=== PATIENT | male | born 1985 | race Caucasian/White ===

== ENCOUNTER 2017-07-21 16:12 | Inpatient (IN) ==
--- NOTE | 2017-07-21 16:32 | Emergency Department Note ---
Disposition Clinical Impression: Hallucinations Disposition: Admitted As Inpatient Condition: Good General Adult HPI - General Chief complaint: ED Psychiatric Symptoms Stated complaint: hallucinations Time Seen by Provider: 07/21/17 16:19 Source: patient, EMS Limitations: no limitations Nursing Notes Reviewed: Yes Vital Signs Reviewed: Yes - History of Present Illness HPI Narrative: 31-year-old male who reports 6 months of visual hallucinations. He states that they are worse after using methamphetamine. He denies any other medical problems aside from bipolar but is not currently treated for that. He states that the hallucinations that he sees are children being killed. Denies auditory hallucinations. Denies other drug or alcohol use. No difficulty walking. Denies SI/HI. He saw his counselor who recommended that he come to the emergency room for evaluation from . Last meth use was 3-4 days ago. Radiation: non-radiation Pain Severity: moderate Pain Scale: 5 Improves with: nothing Worsens with: other (meth use) Associated symptoms: Reports: denies other symptoms Treatments Prior to Arrival: none - Related Data Home Medications Medication Instructions Recorded Confirmed No Known Home Drugs 07/21/17 07/21/17 Allergies Allergy/AdvReac Type Severity Reaction Status Date / Time Sulfa (Sulfonamide AdvReac Rash Verified 05/19/17 12:40 Antibiotics) All systems ED: reviewed and negative except as stated. Constitutional: Denies: fever ENT ED: Denies: throat pain Cardiovascular: Denies: chest pain Respiratory: Denies: cough Gastrointestinal: Denies: abdominal pain Musculoskeletal: Denies: back pain Integumentary: Denies: rash Neurological: Denies: headache Past Medical History - Past Medical History Medical history: Reports: hepatitis Psychiatric history: Reports: bipolar, depression, previous psychiatric hospitalization - Social History Smoking Status: Current every day smoker Smokeless Tobacco Status: No Alcohol use: Reports: rarely Drug use: Reports: opiates, methamphetamine, IV Drug Use Physical Exam - General Limitations: no limitations General appearance: alert, in no apparent distress - Head Head exam: atraumatic - Eye Eye exam: Present: normal appearance, PERRL - ENT ENT exam: normal exam - Neck Neck exam: Present: normal inspection - Chest Chest inspection: Present: normal inspection - Respiratory Respiratory exam: Present: normal lung sounds bilaterally. Absent: respiratory distress - Cardiovascular Cardiovascular exam: Present: regular rate, normal rhythm - Abdominal Exam Abdominal exam: Present: soft, Non-Tender - Extremities Exam Extremities exam: Present: normal inspection - Back Exam Back exam: Present: normal inspection - Neurological Exam Neurological exam: Present: alert, oriented X3 - Skin Skin exam: Present: warm, dry Course Course Narrative: This patient will be dispositioned by Dr Hagen. He has been signed out to Dr Hagen by myself. Vital Signs Temperature 99.5 F 07/21/17 16:18 Pulse Rate 99 07/21/17 16:18 Respiratory Rate 16 07/21/17 16:18 Blood Pressure 120/75 07/21/17 16:18 O2 Sat by Pulse Oximetry 99 07/21/17 16:18 Temperature 98.6 F 07/25/17 20:25 Pulse Rate 78 07/25/17 20:25 Respiratory Rate 16 07/25/17 20:25 Blood Pressure 116/70 07/25/17 20:25 O2 Sat by Pulse Oximetry 99 07/21/17 16:18 Oxygen Delivery Oxygen Delivery Room Air Medical Decision Making - Medical Records Medical records reviewed: Yes I reviewed the patient's medical records. - Lab Data Lab results reviewed: Yes I reviewed the patient's lab results. Result diagrams: 07/21/17 16:37 07/21/17 16:37 Lab Results 07/21/17 07/21/17 07/21/17 Range/Units 16:37 16:37 16:44 WBC 17.0 H (4.3-11.1) K/mcL RBC 5.24 (4.19-5.50) M/mcL Hgb 16.4 (12.9-16.9) g/dL Hct 47.8 (37.5-50.1) % MCV 91.2 (83.0-100.0) fL MCH 31.3 (28.0-33.3) pg MCHC 34.3 (31.6-35.5) g/dL RDW 12.7 (11.5-14.5) % Plt Count 243 (140-400) K/mcL MPV 10.7 (9.4-12.4) fL Immature Gran % 0.3 (0-4) % Seg Neutrophils % 66.5 % Lymphocytes % 17.3 % Monocytes % 15.2 % Eosinophils % 0.5 % Basophils % 0.2 % Neutrophils # 11.3 H (1.6-8.9) K/mcL Lymphocytes # 2.9 (0.6-4.6) K/mcL Monocytes # 2.6 H (0.0-1.3) K/mcL Eosinophils # 0.1 (0.0-0.6) K/mcL Basophils # 0.0 (0.0-0.2) K/mcL Sodium 137 (136-145) mEq/L Potassium 3.6 (3.5-5.1) mEq/L Chloride 100 (98-107) mEq/L Carbon Dioxide 27 (23-29) mEq/L BUN 9 (6-20) mg/dL Creatinine 0.76 (0.70-1.30) mg/dL Est GFR ( Amer) > 60 (> 60) Est GFR (Non-Af Amer) > 60 (> 60) BUN/Creatinine Ratio 12 (6-26) Glucose 81 (70-105) mg/dL Calculated Osmolality 282 (280-300) Calcium 9.7 (8.6-10.3) mg/dL Urine Color Dark Yellow (Yellow) Urine Clarity Cloudy A (Clear) Urine pH 6.0 (5.0-8.0) pH Units Ur Specific [place] 1.022 (1.010-1.025) Urine Protein Trace (Neg-Trace) mg/dL Urine Glucose (UA) Normal (Normal) mg/dL Urine Ketones Negative (Negative) mg/dL Urine Blood Negative (Negative) Urine Nitrite Negative (Negative) Urine Bilirubin Small H (Negative) Urine Urobilinogen Normal (Normal) mg/dL Ur Leukocyte Esterase Negative (Negative) Urine Microscopic RBC 0-3 (0-3) per hpf Urine Microscopic WBC 3-5 H (0-3) per hpf Ur Squamous Epith Cells Few (None-Few) per lpf Urine Bacteria Few (None-Few) per hpf Hyaline Casts None Seen (None-Few) per lpf Salicylates < 5.0 L (15.0-30.0) mg/dL Urine Opiates Screen (Kwywyg=860) ng/mL Acetaminophen < 1.0 L (10-30) mcg/mL Ur Barbiturates Screen (Nrccrg=458) ng/mL Ur Phencyclidine Scrn (Cutoff=25) ng/mL Ur Amphetamines Screen (Zawjrh=8020) ng/mL U Benzodiazepines Scrn (Bgczqo=517) ng/mL Urine Cocaine Screen (Cutoff= 300) ng/mL U Marijuana (THC) Screen (Cutoff = 50) ng/mL Ethyl Alcohol < 10 (0-10) mg/dL 07/21/17 Range/Units 16:44 WBC (4.3-11.1) K/mcL RBC (4.19-5.50) M/mcL Hgb (12.9-16.9) g/dL Hct (37.5-50.1) % MCV (83.0-100.0) fL MCH (28.0-33.3) pg MCHC (31.6-35.5) g/dL RDW (11.5-14.5) % Plt Count (140-400) K/mcL MPV (9.4-12.4) fL Immature Gran % (0-4) % Seg Neutrophils % % Lymphocytes % % Monocytes % % Eosinophils % % Basophils % % Neutrophils # (1.6-8.9) K/mcL Lymphocytes # (0.6-4.6) K/mcL Monocytes # (0.0-1.3) K/mcL Eosinophils # (0.0-0.6) K/mcL Basophils # (0.0-0.2) K/mcL Sodium (136-145) mEq/L Potassium (3.5-5.1) mEq/L Chloride (98-107) mEq/L Carbon Dioxide (23-29) mEq/L BUN (6-20) mg/dL Creatinine (0.70-1.30) mg/dL Est GFR ( Amer) (> 60) Est GFR (Non-Af Amer) (> 60) BUN/Creatinine Ratio (6-26) Glucose (70-105) mg/dL Calculated Osmolality (280-300) Calcium (8.6-10.3) mg/dL Urine Color (Yellow) Urine Clarity (Clear) Urine pH (5.0-8.0) pH Units Ur Specific [place] (1.010-1.025) Urine Protein (Neg-Trace) mg/dL Urine Glucose (UA) (Normal) mg/dL Urine Ketones (Negative) mg/dL Urine Blood (Negative) Urine Nitrite (Negative) Urine Bilirubin (Negative) Urine Urobilinogen (Normal) mg/dL Ur Leukocyte Esterase (Negative) Urine Microscopic RBC (0-3) per hpf Urine Microscopic WBC (0-3) per hpf Ur Squamous Epith Cells (None-Few) per lpf Urine Bacteria (None-Few) per hpf Hyaline Casts (None-Few) per lpf Salicylates (15.0-30.0) mg/dL Urine Opiates Screen Negative (Beogbo=004) ng/mL Acetaminophen (10-30) mcg/mL Ur Barbiturates Screen Negative (Vhoyaa=327) ng/mL Ur Phencyclidine Scrn Negative (Cutoff=25) ng/mL Ur Amphetamines Screen Positive H (Qnssgu=7739) ng/mL U Benzodiazepines Scrn Negative (Pjwygy=489) ng/mL Urine Cocaine Screen Negative (Cutoff= 300) ng/mL U Marijuana (THC) Screen Positive H (Cutoff = 50) ng/mL Ethyl Alcohol (0-10) mg/dL Attestation Statement - Attestation Attestation: I examined this patient and my medical decision-making was reviewed with the Resident Physician. I agree with the documented findings, disposition and treatment plan as described except.
[2017-07-21 16:51] LABS: Bilirubin,Urine Small (Negative); Blood,Urine Negative (Negative); Clarity,Urine Cloudy (Clear); Color,Urine Dark Yellow (Yellow); Glucose,Urine (UA) Normal (Normal); Ketones,Urine Negative (Negative); Leukocyte Esterase,Urine Negative (Negative); Nitrite,Urine Negative (Negative); Protein,Urine Trace mg/dL (Neg-Trace); Specific Gravity,Urine 1.022 (1.010-1.025); Urobilinogen,Urine Normal (Normal)
[2017-07-21 16:54] LABS: Hyaline Casts,Urine None Seen per lpf (None-Few); RBC,Urine 0-3 per hpf (0-3); Squamous Epithelial Cell,Urine Few per lpf (None-Few)
[2017-07-21 16:57] LABS: Amphetamine Screen,Urine Positive ng/mL (Cutoff=1000); Barbiturate Screen,Urine Negative ng/mL (Cutoff=200); Benzodiazepines Screen,Urine Negative ng/mL (Cutoff=200); Cannabinoid Screen,Urine Positive ng/mL (Cutoff = 50); Cocaine Screen,Urine Negative ng/mL (Cutoff= 300); Opiate Screen,Urine Negative ng/mL (Cutoff=300); Phencyclidine Screen,Urine Negative ng/mL (Cutoff=25)
[2017-07-21 16:59] LABS: Basophils % 0.2 %; Eosinophils # 0.1 K/mcL (0.0-0.6); Eosinophils % 0.5 %; Hematocrit 47.8 % (37.5-50.1); Hemoglobin 16.4 g/dL (12.9-16.9); Immature Granulocytes % 0.3 % (0-4); Lymphocytes # 2.9 K/mcL (0.6-4.6); Lymphocytes % 17.3 %; Mean Corpuscular HGB Conc 34.3 g/dL (31.6-35.5); Mean Corpuscular Hemoglobin 31.3 pg (28.0-33.3); Mean Corpuscular Volume 91.2 fL (83.0-100.0); Mean Platelet Volume 10.7 fL (9.4-12.4); Monocytes # 2.6 K/mcL (0.0-1.3); Monocytes % 15.2 %; Neutrophils # 11.3 K/mcL (1.6-8.9); Platelet Count 243 K/mcL (140-400); Red Blood Count 5.24 M/mcL (4.19-5.50); Red Cell Distribution Width 12.7 % (11.5-14.5); Segmented Neutrophils % 66.5 %
[2017-07-21 17:07] LABS: Bacteria,Urine Few per hpf (None-Few)
[2017-07-21 17:14] LABS: Acetaminophen < 1.0 mcg/mL (10-30); Ethanol < 10 mg/dL (0-10); Salicylate < 5.0 mg/dL (15.0-30.0)
[2017-07-21 17:36] LABS: BUN/Creatinine Ratio 12 (6-26); Blood Urea Nitrogen 9 mg/dL (6-20); Calcium 9.7 mg/dL (8.6-10.3); Carbon Dioxide 27 mEq/L (23-29); Chloride 100 mEq/L (98-107); Glucose 81 mg/dL (70-105); Osmolality,Calculated 282 (280-300); Potassium 3.6 mEq/L (3.5-5.1); Sodium 137 mEq/L (136-145); eGFR For African Americans > 60 (> 60); eGFR For Non-African Americans > 60 (> 60)
--- NOTE | 2017-07-21 20:20 | Emergency Department Note ---
Disposition Clinical Impression: Hallucinations Disposition: Admitted As Inpatient Condition: Good Referrals: NONE,PCP [Primary Care Provider] - Forms: ED Satisfaction Letter Time of Disposition: 20:20 General Adult HPI - General Chief complaint: ED Psychiatric Symptoms Stated complaint: hallucinations Time Seen by Provider: 07/21/17 16:19 Source: patient, EMS Limitations: no limitations - History of Present Illness Pain Scale: 5 Improves with: nothing Worsens with: other (meth use) Associated symptoms: Reports: denies other symptoms Treatments Prior to Arrival: none - Related Data Previous Rx's Medication Instructions Recorded Dicyclomine [Bentyl] 20 mg PO QID PRN #20 capsule 08/10/15 metroNIDAZOLE [Flagyl] 500 mg PO BID #40 tablet 08/10/15 HydrOXYzine 10 mg PO TID PRN #14 tablet 06/27/17 Allergies Allergy/AdvReac Type Severity Reaction Status Date / Time Sulfa (Sulfonamide AdvReac Rash Verified 05/19/17 12:40 Antibiotics) Constitutional: Denies: fever ENT ED: Denies: throat pain Cardiovascular: Denies: chest pain Respiratory: Denies: cough Gastrointestinal: Denies: abdominal pain Musculoskeletal: Denies: back pain Integumentary: Denies: rash Neurological: Denies: headache Past Medical History - Past Medical History Medical history: Reports: hepatitis Psychiatric history: Reports: bipolar, depression, previous psychiatric hospitalization - Social History Smoking Status: Current every day smoker Smokeless Tobacco Status: No Alcohol use: Reports: rarely Drug use: Reports: opiates, methamphetamine, IV Drug Use Physical Exam - General Limitations: no limitations General appearance: alert, in no apparent distress Course - Reevaluation(s) Reevaluation #1: Patient signed out pending 1A evaluation. Patient to be admitted to 1A. pink slip on chart. Time: 20:19 Vital Signs Temperature 99.5 F 07/21/17 16:18 Pulse Rate 99 07/21/17 16:18 Respiratory Rate 16 07/21/17 16:18 Blood Pressure 120/75 07/21/17 16:18 O2 Sat by Pulse Oximetry 99 07/21/17 16:18 Temperature 99.5 F 07/21/17 16:18 Pulse Rate 99 07/21/17 16:18 Respiratory Rate 16 07/21/17 16:18 Blood Pressure 120/75 07/21/17 16:18 O2 Sat by Pulse Oximetry 99 07/21/17 16:18 Oxygen Delivery Oxygen Delivery Room Air Medical Decision Making - Lab Data Result diagrams: 07/21/17 16:37 07/21/17 16:37 Lab Results 07/21/17 07/21/17 07/21/17 Range/Units 16:37 16:37 16:44 WBC 17.0 H (4.3-11.1) K/mcL RBC 5.24 (4.19-5.50) M/mcL Hgb 16.4 (12.9-16.9) g/dL Hct 47.8 (37.5-50.1) % MCV 91.2 (83.0-100.0) fL MCH 31.3 (28.0-33.3) pg MCHC 34.3 (31.6-35.5) g/dL RDW 12.7 (11.5-14.5) % Plt Count 243 (140-400) K/mcL MPV 10.7 (9.4-12.4) fL Immature Gran % 0.3 (0-4) % Seg Neutrophils % 66.5 % Lymphocytes % 17.3 % Monocytes % 15.2 % Eosinophils % 0.5 % Basophils % 0.2 % Neutrophils # 11.3 H (1.6-8.9) K/mcL Lymphocytes # 2.9 (0.6-4.6) K/mcL Monocytes # 2.6 H (0.0-1.3) K/mcL Eosinophils # 0.1 (0.0-0.6) K/mcL Basophils # 0.0 (0.0-0.2) K/mcL Sodium 137 (136-145) mEq/L Potassium 3.6 (3.5-5.1) mEq/L Chloride 100 (98-107) mEq/L Carbon Dioxide 27 (23-29) mEq/L BUN 9 (6-20) mg/dL Creatinine 0.76 (0.70-1.30) mg/dL Est GFR ( Amer) > 60 (> 60) Est GFR (Non-Af Amer) > 60 (> 60) BUN/Creatinine Ratio 12 (6-26) Glucose 81 (70-105) mg/dL Calculated Osmolality 282 (280-300) Calcium 9.7 (8.6-10.3) mg/dL Urine Color Dark Yellow (Yellow) Urine Clarity Cloudy A (Clear) Urine pH 6.0 (5.0-8.0) pH Units Ur Specific [address] 1.022 (1.010-1.025) Urine Protein Trace (Neg-Trace) mg/dL Urine Glucose (UA) Normal (Normal) mg/dL Urine Ketones Negative (Negative) mg/dL Urine Blood Negative (Negative) Urine Nitrite Negative (Negative) Urine Bilirubin Small H (Negative) Urine Urobilinogen Normal (Normal) mg/dL Ur Leukocyte Esterase Negative (Negative) Urine Microscopic RBC 0-3 (0-3) per hpf Urine Microscopic WBC 3-5 H (0-3) per hpf Ur Squamous Epith Cells Few (None-Few) per lpf Urine Bacteria Few (None-Few) per hpf Hyaline Casts None Seen (None-Few) per lpf Salicylates < 5.0 L (15.0-30.0) mg/dL Urine Opiates Screen (Vrlsmw=336) ng/mL Acetaminophen < 1.0 L (10-30) mcg/mL Ur Barbiturates Screen (Hyzrtd=665) ng/mL Ur Phencyclidine Scrn (Cutoff=25) ng/mL Ur Amphetamines Screen (Yydlea=2095) ng/mL U Benzodiazepines Scrn (Qyxkbe=411) ng/mL Urine Cocaine Screen (Cutoff= 300) ng/mL U Marijuana (THC) Screen (Cutoff = 50) ng/mL Ethyl Alcohol < 10 (0-10) mg/dL 07/21/17 Range/Units 16:44 WBC (4.3-11.1) K/mcL RBC (4.19-5.50) M/mcL Hgb (12.9-16.9) g/dL Hct (37.5-50.1) % MCV (83.0-100.0) fL MCH (28.0-33.3) pg MCHC (31.6-35.5) g/dL RDW (11.5-14.5) % Plt Count (140-400) K/mcL MPV (9.4-12.4) fL Immature Gran % (0-4) % Seg Neutrophils % % Lymphocytes % % Monocytes % % Eosinophils % % Basophils % % Neutrophils # (1.6-8.9) K/mcL Lymphocytes # (0.6-4.6) K/mcL Monocytes # (0.0-1.3) K/mcL Eosinophils # (0.0-0.6) K/mcL Basophils # (0.0-0.2) K/mcL Sodium (136-145) mEq/L Potassium (3.5-5.1) mEq/L Chloride (98-107) mEq/L Carbon Dioxide (23-29) mEq/L BUN (6-20) mg/dL Creatinine (0.70-1.30) mg/dL Est GFR ( Amer) (> 60) Est GFR (Non-Af Amer) (> 60) BUN/Creatinine Ratio (6-26) Glucose (70-105) mg/dL Calculated Osmolality (280-300) Calcium (8.6-10.3) mg/dL Urine Color (Yellow) Urine Clarity (Clear) Urine pH (5.0-8.0) pH Units Ur Specific [address] (1.010-1.025) Urine Protein (Neg-Trace) mg/dL Urine Glucose (UA) (Normal) mg/dL Urine Ketones (Negative) mg/dL Urine Blood (Negative) Urine Nitrite (Negative) Urine Bilirubin (Negative) Urine Urobilinogen (Normal) mg/dL Ur Leukocyte Esterase (Negative) Urine Microscopic RBC (0-3) per hpf Urine Microscopic WBC (0-3) per hpf Ur Squamous Epith Cells (None-Few) per lpf Urine Bacteria (None-Few) per hpf Hyaline Casts (None-Few) per lpf Salicylates (15.0-30.0) mg/dL Urine Opiates Screen Negative (Yulkiu=206) ng/mL Acetaminophen (10-30) mcg/mL Ur Barbiturates Screen Negative (Ahdgti=879) ng/mL Ur Phencyclidine Scrn Negative (Cutoff=25) ng/mL Ur Amphetamines Screen Positive H (Aljdst=0236) ng/mL U Benzodiazepines Scrn Negative (Nkjqwe=564) ng/mL Urine Cocaine Screen Negative (Cutoff= 300) ng/mL U Marijuana (THC) Screen Positive H (Cutoff = 50) ng/mL Ethyl Alcohol (0-10) mg/dL
[2017-07-21] MEDS ORDERED: Haloperidol Lactate 5 MG/ML VIAL IM PRN (22:31)
[2017-07-21] MEDS ORDERED: Nicotine 2 MG GUM BC PRN (22:31)
[2017-07-21] MEDS ORDERED: Ibuprofen 400 MG TABLET PO PRN (22:31)
[2017-07-21] MEDS ORDERED: Mag Hydrox/Al Hydrox/Simeth 30 ML UDC PO PRN (22:31)
[2017-07-21] MEDS ORDERED: *HR* LORazepam 1 MG TABLET PO PRN (22:31)
[2017-07-21] MEDS ORDERED: MOM Conc 10 ML UD.LIQ PO PRN (22:31)
[2017-07-21] MEDS ORDERED: *HR* LORazepam 2 MG/ML VIAL IM PRN (22:31)
--- NOTE | 2017-07-22 11:52 | Psychiatry History & Physical ---
Date of Encounter: 07/22/17 Time of Encounter: 11:30 History of Present Illness Patient Stated Chief Complaint: i have hallucinations and depression. Medicare Admission Attestation: For traditional Medicare patients the provided hospital inpatient services are reasonable and necessary and in the case of services not specified as inpatient -only under 42 CFR 419.22 (n), that they are appropriately provided as inpatient services in accordance 42 CFR 412.3. For Critical Access Hospital the patient may reasonably be expected to be discharged or transferred to a hospital within 96 hours after admission to the Critical Access Hospital. Admitted From: Emergency Dept Plans for Post Hospital Care: Home History of Present Illness: Mr. Solorio is a 31 year old male admitted from ED , ambulance was called in by library where he was reading bible, told them seeing things like kids been thrown from roof tops and he is hearing small kids saying help and calling me abel . This is his first inpatient at . He has been admitted a year ago to [facility] Patient has previous psychiatric history of Bipolar and substance use. He has had manic episode before and psychotic episode. He has been off his medication 3 months ago , follow up at [facility] , he has been using IV Methamphetamine and smoke marijuana. he is homeless and no support . At present hearing voices of children and hearing familiar voices, also seeing children thrown from roof, sees God all the time ,he is denying suicidal ideation , denies homicidal ideation , mind racing , depress and tired and not eating well , not sleeping well and hopeless, helpless, he is internally preoccupied and not good historian. Past Med Surg Social Fam HX - Past Medical History Medical history: hepatitis - Past Surgical History Surgical History: no surgical history - Social History Smoking Status: Current every day smoker Smokeless Tobacco Status: No Alcohol use: rarely Drug use: opiates, marijuana, methamphetamine, IV Drug Use Occupational status: unemployed Current living situation: Homeless Activity Level: Independent ambulation Recent Out of Country Travel Within the Last 8 Weeks: No Exposure or Possible Exposure to Illness During Travel: No - Family History Mother Adopted: [place]: Marline Family Member Ethnicity: Non- Living Status: Age at : 43 Hx Family Cardiac Disorders: Yes Hx Family Respiratory Disorders: No Hx Family Cancer: No Hx Family GI Disorders: No Hx Family Genitourinary Disorders: No Hx Family Endocrine Disorder: No Hx Family Musculoskeletal Disorders: No Hx Family Neuromuscular Disorders: No Hx Family Neurologic Disorders: No Hx Family HEENT Disorders: No Hx Family Autoimmune Disorders: No Hx Family Reproductive Disorders: No Hx Family Psychosocial Disorders: No Hx Family Medical Disorders: No Medications & Allergies No Known Home Drugs 07/21/17 [History] 3 Allergy/AdvReac Type Severity Reaction Status Date / Time Sulfa (Sulfonamide AdvReac Rash Verified 05/19/17 12:40 Antibiotics) Review of Systems Constitutional: Denies: fever, chills, weakness, weight change Cardiovascular: Denies: chest pain, palpitations, dyspnea on exertion Respiratory: Denies: cough, dyspnea, wheezes Gastrointestinal: Denies: abdominal pain, nausea, vomiting, diarrhea, constipation Genitourinary male: Denies: urgency, dysuria, frequency, genital lesions Musculoskeletal: Denies: joint swelling, joint pain Integumentary: Denies: rash, lesions, pruritus Neurological: Denies: headache, weakness, numbness, memory loss Psychiatric: Reports: depression, anxiety, abnormal sleep pattern, change in appetite, auditory hallucinations, visual hallucinations, hopelessness, mood swings Endocrine: Denies: fatigue, heat or cold intolerance Exam - HEENT Head exam IM: Present: atraumatic, normal inspection, normocephalic Eye exam IM: Present: normal appearance ENT exam IM: Present: normal exam - Neurological Neurological exam: Present: CN II-XII intact, alert, no focal deficits - Respiratory Respiratory exam IM: Present: CTAB - GI/Abdominal GI/Abdominal exam IM: Present: normal bowel sounds, soft. Absent: tenderness - Extremities Extremities exam IM: Present: full ROM - Skin Skin exam IM: Present: dry, warm - Constitutional Vitals: Temp Pulse Resp BP Pulse Ox 96.1 F L 88 88 101/78 99 07/22/17 09:00 07/22/17 09:00 07/22/17 09:00 07/22/17 09:00 07/21/17 16:18 General appearance: age & developmentally appropriate - Musculoskeletal Gait: normal Station: other Strength & Tone: normal for patient - Psychiatric Patient Orientation: Yes Person, Yes Time, Yes Place Level of alertness: Alert Behavior: cooperative, withdrawn Psychomotor activity: Normal Eye Contact: Minimal Contact Mood Description: Depressed Affect description: constricted Speech Volume: Soft/Quiet Speech pattern: slowed Language & Vocabulary: consistent with education Thought Process: Slowed Thinking Thought Content: Yes Preoccupation, Yes Paranoid delusion Perceptual Disturbances: Yes Auditory hallucinations, Yes Visual hallucinations Attention Span Ability: Unable to Sustain Attention Memory Description: Grossly Intact Patient Reliability: Questionable Historian Fund of knowledge: Yes below average Intelligence Estimate: Average Judgment: Poor Insight: Minimal Results - Labs Labs: Laboratory Last Values WBC 17.0 K/mcL (4.3-11.1) H 07/21/17 16:37 RBC 5.24 M/mcL (4.19-5.50) 07/21/17 16:37 Hgb 16.4 g/dL (12.9-16.9) 07/21/17 16:37 Hct 47.8 % (37.5-50.1) 07/21/17 16:37 MCV 91.2 fL (83.0-100.0) 07/21/17 16:37 MCH 31.3 pg (28.0-33.3) 07/21/17 16:37 MCHC 34.3 g/dL (31.6-35.5) 07/21/17 16:37 RDW 12.7 % (11.5-14.5) 07/21/17 16:37 Plt Count 243 K/mcL (140-400) 07/21/17 16:37 MPV 10.7 fL (9.4-12.4) 07/21/17 16:37 Immature Gran % 0.3 % (0-4) 07/21/17 16:37 Seg Neutrophils % 66.5 % 07/21/17 16:37 Lymphocytes % 17.3 % 07/21/17 16:37 Monocytes % 15.2 % 07/21/17 16:37 Eosinophils % 0.5 % 07/21/17 16:37 Basophils % 0.2 % 07/21/17 16:37 Neutrophils # 11.3 K/mcL (1.6-8.9) H 07/21/17 16:37 Lymphocytes # 2.9 K/mcL (0.6-4.6) 07/21/17 16:37 Monocytes # 2.6 K/mcL (0.0-1.3) H 07/21/17 16:37 Eosinophils # 0.1 K/mcL (0.0-0.6) 07/21/17 16:37 Basophils # 0.0 K/mcL (0.0-0.2) 07/21/17 16:37 Sodium 137 mEq/L (136-145) 07/21/17 16:37 Potassium 3.6 mEq/L (3.5-5.1) 07/21/17 16:37 Chloride 100 mEq/L (98-107) 07/21/17 16:37 Carbon Dioxide 27 mEq/L (23-29) 07/21/17 16:37 BUN 9 mg/dL (6-20) 07/21/17 16:37 Creatinine 0.76 mg/dL (0.70-1.30) 07/21/17 16:37 Est GFR ( Amer) > 60 (> 60) 07/21/17 16:37 Est GFR (Non-Af Amer) > 60 (> 60) 07/21/17 16:37 BUN/Creatinine Ratio 12 (6-26) 07/21/17 16:37 Glucose 81 mg/dL (70-105) 07/21/17 16:37 Calculated Osmolality 282 (280-300) 07/21/17 16:37 Calcium 9.7 mg/dL (8.6-10.3) 07/21/17 16:37 Urine Color Dark Yellow (Yellow) 07/21/17 16:44 Urine Clarity Cloudy (Clear) A 07/21/17 16:44 Urine pH 6.0 pH Units (5.0-8.0) 07/21/17 16:44 Ur Specific [place] 1.022 (1.010-1.025) 07/21/17 16:44 Urine Protein Trace mg/dL (Neg-Trace) 07/21/17 16:44 Urine Glucose (UA) Normal mg/dL (Normal) 07/21/17 16:44 Urine Ketones Negative mg/dL (Negative) 07/21/17 16:44 Urine Blood Negative (Negative) 07/21/17 16:44 Urine Nitrite Negative (Negative) 07/21/17 16:44 Urine Bilirubin Small (Negative) H 07/21/17 16:44 Urine Urobilinogen Normal mg/dL (Normal) 07/21/17 16:44 Ur Leukocyte Esterase Negative (Negative) 07/21/17 16:44 Urine Microscopic RBC 0-3 per hpf (0-3) 07/21/17 16:44 Urine Microscopic WBC 3-5 per hpf (0-3) H 07/21/17 16:44 Ur Squamous Epith Cells Few per lpf (None-Few) 07/21/17 16:44 Urine Bacteria Few per hpf (None-Few) 07/21/17 16:44 Hyaline Casts None Seen per lpf (None-Few) 07/21/17 16:44 Salicylates < 5.0 mg/dL (15.0-30.0) L 07/21/17 16:37 Urine Opiates Screen Negative ng/mL (Ojzyuk=020) 07/21/17 16:44 Acetaminophen < 1.0 mcg/mL (10-30) L 07/21/17 16:37 Ur Barbiturates Screen Negative ng/mL (Yfrgbg=755) 07/21/17 16:44 Ur Phencyclidine Scrn Negative ng/mL (Cutoff=25) 07/21/17 16:44 Ur Amphetamines Screen Positive ng/mL (Vzgozm=3687) H 07/21/17 16:44 U Benzodiazepines Scrn Negative ng/mL (Kfhnct=282) 07/21/17 16:44 Urine Cocaine Screen Negative ng/mL (Cutoff= 300) 07/21/17 16:44 U Marijuana (THC) Screen Positive ng/mL (Cutoff = 50) H 07/21/17 16:44 Ethyl Alcohol < 10 mg/dL (0-10) 07/21/17 16:37 Assessment and Plan (1) Bipolar affective disorder, depressed, severe, with psychotic behavior Current visit: Yes Status: Acute Plan: Admit inpatient for safety and stabilization, Close observation, Suicide Precautions per unit protocol, Encourage participation in unit milieu, Group Therapy, Monitor sleep, Monitor appetite, Family/Supportive other meeting Additional Plan: patient need inpatient for safety and stabilizaion of his psychosis and depression and unable to self care. Risks, benefits, side effects, alternatives discussed w/pt: Yes Patient agreeable to treatment: Yes Plans for Post Hospital Care: Transfer Other (2) Methamphetamine abuse Current visit: Yes Status: Acute Plan: Admit inpatient for safety and stabilization, Close observation, Suicide Precautions per unit protocol, Encourage participation in unit milieu, Group Therapy, Monitor sleep, Monitor appetite, Family/Supportive other meeting Additional Plan: Patient educated about substance use and importance of soberity. Risks, benefits, side effects, alternatives discussed w/pt: Yes Patient agreeable to treatment: Yes Plans for Post Hospital Care: Transfer Other (3) Cannabis abuse Current visit: Yes Status: Acute Plan: Admit inpatient for safety and stabilization, Suicide Precautions per unit protocol, Family/Supportive other meeting Risks, benefits, side effects, alternatives discussed w/pt: Yes Patient agreeable to treatment: Yes Plans for Post Hospital Care: Transfer Other
[2017-07-22] MEDS: hydrOXYzine pamoate 25 MG CAPSULE PO PRN (21:35)
--- NOTE | 2017-07-23 12:28 | Psychiatry Progress Note ---
Date of Encounter: 07/23/17 Time of Encounter: 12:15 Subjective Interval history: Patient seen today , case d/w staff. Patient still depress, and psychotic , sleep not good . he is hopeless and have thoughts about dying , denies any plan to hurt self. he has been taking fetzima for his depression , which is not on formulary here, he states was given samples , he agreed to try prozac and will start today and increase Seroquel to 100 mg hs . side effects explained to patient and he agreed with the plan. Review of Systems Psychiatric: Reports: depression, anxiety, abnormal sleep pattern, change in appetite, auditory hallucinations, visual hallucinations, hopelessness, mood swings Results - Vital Signs Vital Signs: Temp Pulse Resp BP Pulse Ox 98.4 F 79 18 116/76 99 07/23/17 09:00 07/23/17 09:00 07/23/17 09:00 07/23/17 09:00 07/21/17 16:18 Assessment and Plan (1) Bipolar affective disorder, depressed, severe, with psychotic behavior Current visit: Yes Status: Acute Risks, benefits, side effects, alternatives discussed w/pt: Yes Patient agreeable to treatment: Yes (2) Methamphetamine abuse Current visit: Yes Status: Acute Risks, benefits, side effects, alternatives discussed w/pt: Yes Patient agreeable to treatment: Yes (3) Cannabis abuse Current visit: Yes Status: Acute Risks, benefits, side effects, alternatives discussed w/pt: Yes Patient agreeable to treatment: Yes Consult Discharge Plan - Plan Referrals: NONE,PCP [Primary Care Provider] - Psychiatry Exam - Constitutional Vitals: Temp Pulse Resp BP Pulse Ox 98.4 F 79 18 116/76 99 07/23/17 09:00 07/23/17 09:00 07/23/17 09:00 07/23/17 09:00 07/21/17 16:18 General appearance: age & developmentally appropriate - Musculoskeletal Gait: normal Station: stooped Strength & Tone: normal for patient - Psychiatric Patient Orientation: Yes Person, Yes Time, Yes Place Level of alertness: Alert Behavior: cooperative, withdrawn Psychomotor activity: Slowed Eye Contact: Minimal Contact Mood Description: Depressed, Anxious Affect description: congruent with mood, constricted Speech Volume: Soft/Quiet Speech pattern: slowed Language & Vocabulary: limited Thought Process: Slowed Thinking Thought Content: Yes Preoccupation, Yes Guilt Perceptual Disturbances: Yes Auditory hallucinations Attention Span Ability: Unable to Sustain Attention Memory Description: Grossly Intact Patient Reliability: Reliable Historian Fund of knowledge: Yes average Intelligence Estimate: Average Judgment: Poor Insight: Minimal
[2017-07-23] MEDS: FLUoxetine 20 MG CAPSULE PO SCH (13:13)
[2017-07-23] MEDS: hydrOXYzine pamoate 25 MG CAPSULE PO PRN (21:34)
[2017-07-24] MEDS: FLUoxetine 20 MG CAPSULE PO SCH (09:52)
--- NOTE | 2017-07-24 17:40 | Psychiatry Progress Note ---
Date of Encounter: 07/24/17 Time of Encounter: 17:40 Subjective Interval history: Patient seen for follow-up. Case discussed with treatment team. He continued to experience auditory and visual hallucinations but less frequent and less intense. He is responding to medication and denies side effects. He acknowledged his drug use contributed to his condition. Review of Systems Psychiatric: Reports: depression, anxiety, abnormal sleep pattern, change in appetite, auditory hallucinations, visual hallucinations, hopelessness, mood swings Results - Vital Signs Vital Signs: Temp Pulse Resp BP Pulse Ox 98.4 F 79 18 105/72 99 07/24/17 09:00 07/24/17 09:00 07/24/17 09:00 07/24/17 09:00 07/21/17 16:18 Assessment and Plan (1) Bipolar affective disorder, depressed, severe, with psychotic behavior Current visit: Yes Status: Acute Plan: Continue hospitalization, Close observation, Suicide Precautions per unit protocol, Encourage participation in unit milieu, Group Therapy, Monitor sleep, Monitor appetite Risks, benefits, side effects, alternatives discussed w/pt: Yes Patient agreeable to treatment: Yes Consult Discharge Plan - Plan Referrals: NONE,PCP [Primary Care Provider] - Psychiatry Exam - Constitutional Vitals: Temp Pulse Resp BP Pulse Ox 98.4 F 79 18 105/72 99 07/24/17 09:00 07/24/17 09:00 07/24/17 09:00 07/24/17 09:00 07/21/17 16:18 General appearance: age & developmentally appropriate, well-nourished, unkempt, bizarre - Musculoskeletal Gait: normal Station: relaxed Strength & Tone: normal for patient - Psychiatric Patient Orientation: Yes Person, Yes Time, Yes Place Level of alertness: Alert Behavior: calm, cooperative, withdrawn Psychomotor activity: Slowed Eye Contact: Fleeting Contact Mood Description: Euthymic/stable, Anxious Affect description: constricted, blunted Speech Volume: Soft/Quiet Speech pattern: normal rate, normal rhythm, normal tone, fluent, spontaneous, limited Language & Vocabulary: consistent with education Thought Process: Linear, Circumstantial Thought Content: No Suicidal ideation, No Homicidal ideation, No Overt delusions Perceptual Disturbances: Yes Auditory hallucinations, Yes Visual hallucinations Attention Span Ability: Unable to Focus Memory Description: Grossly Intact Patient Reliability: Questionable Historian Fund of knowledge: Yes abstraction ability, Yes average, Yes aware of current events Intelligence Estimate: Average Judgment: Limited Insight: Partial
[2017-07-25] MEDS: FLUoxetine 20 MG CAPSULE PO SCH (08:49)
--- NOTE | 2017-07-25 15:27 | Psychiatry Progress Note ---
Date of Encounter: 07/25/17 Time of Encounter: 15:24 Subjective Interval history: Patient is seen for follow-up. Case discussed with treatment team. Patient has been the most of his time in bed. He is not attending activities or groups and complaining of feeling "tired. His vital signs are stable and he had no dizziness episodes. I reviewed his history of dizziness that started and teenage and has been evaluated in the past by Holter monitor and no treatment was recommended. He denies auditory and visual hallucinations. He is compliant with treatment. Review of Systems Psychiatric: Reports: depression, anxiety, abnormal sleep pattern, change in appetite, auditory hallucinations, visual hallucinations, hopelessness, mood swings Results - Vital Signs Vital Signs: Temp Pulse Resp BP Pulse Ox 98.2 F 85 16 124/77 99 07/25/17 09:00 07/25/17 09:00 07/25/17 09:00 07/25/17 09:00 07/21/17 16:18 Assessment and Plan (1) Bipolar affective disorder, depressed, severe, with psychotic behavior Current visit: Yes Status: Acute Plan: Continue hospitalization, Close observation, Suicide Precautions per unit protocol, Encourage participation in unit milieu, Group Therapy, Monitor sleep, Monitor appetite Risks, benefits, side effects, alternatives discussed w/pt: Yes Patient agreeable to treatment: Yes Consult Discharge Plan - Plan Referrals: NONE,PCP [Primary Care Provider] - Psychiatry Exam - Constitutional Vitals: Temp Pulse Resp BP Pulse Ox 98.2 F 85 16 124/77 99 07/25/17 09:00 07/25/17 09:00 07/25/17 09:00 07/25/17 09:00 07/21/17 16:18 General appearance: age & developmentally appropriate, well-groomed, well- nourished - Musculoskeletal Gait: normal Station: relaxed Strength & Tone: normal for patient - Psychiatric Patient Orientation: Yes Person, Yes Time, Yes Place Level of alertness: Alert Behavior: calm, cooperative, withdrawn Psychomotor activity: Slowed Eye Contact: Maintains Eye Contact Mood Description: Euthymic/stable Affect description: congruent with mood, euthymic Speech Volume: Normal Speech pattern: normal rate, normal rhythm, normal tone, fluent, spontaneous Language & Vocabulary: consistent with education, limited Thought Process: Linear, Goal Oriented Thought Content: No Suicidal ideation, No Homicidal ideation, No Overt delusions Perceptual Disturbances: No Auditory hallucinations, No Visual hallucinations Attention Span Ability: Capable of Focused Attention Memory Description: Grossly Intact Patient Reliability: Reliable Historian Fund of knowledge: Yes abstraction ability, Yes aware of current events Intelligence Estimate: Average Judgment: Limited Insight: Partial
[2017-07-26] MEDS: FLUoxetine 20 MG CAPSULE PO SCH (09:05)
[2017-07-26 11:02] VITALS: BP 104/67
--- NOTE | 2017-07-26 15:17 | Discharge Summary ---
Date of Encounter: 07/26/17 Time of Encounter: 15:14 Diagnosis - Discharge Diagnosis (1) Bipolar affective disorder, depressed, severe, with psychotic behavior Status: Acute Medications - Discharge Medications Prescriptions: FLUoxetine HCl [Prozac] 20 mg PO DAILY #30 capsule Quetiapine Fumarate [Seroquel] 100 mg PO HS #30 tablet FLUoxetine HCl [Prozac] 20 mg PO DAILY #30 capsule 07/26/17 [Rx] Quetiapine Fumarate [Seroquel] 100 mg PO HS #30 tablet 07/26/17 [Rx] 3 Allergy/AdvReac Type Severity Reaction Status Date / Time Sulfa (Sulfonamide AdvReac Rash Verified 05/19/17 12:40 Antibiotics) Provider Date of admission: 07/21/17 20:30 Primary care physician: PCP NONE Discharging clinician: Dejon Kruger Psychiatry Exam - Constitutional Vitals: Temp Pulse Resp BP Pulse Ox 98 F 79 16 104/67 99 07/26/17 09:00 07/26/17 09:00 07/26/17 09:00 07/26/17 09:00 07/21/17 16:18 General appearance: age & developmentally appropriate, well-groomed, well- nourished - Musculoskeletal Gait: normal Station: relaxed Strength & Tone: normal for patient - Psychiatric Patient Orientation: Yes Person, Yes Time, Yes Place Level of alertness: Alert Behavior: calm, cooperative Psychomotor activity: Normal Eye Contact: Maintains Eye Contact Mood Description: Euthymic/stable Affect description: congruent with mood, full range Speech Volume: Normal Speech pattern: normal rate, normal rhythm, normal tone, fluent, spontaneous Language & Vocabulary: consistent with education Thought Process: Linear, Goal Oriented Thought Content: No Suicidal ideation, No Homicidal ideation, No Overt delusions Perceptual Disturbances: No Auditory hallucinations, No Visual hallucinations Attention Span Ability: Capable of Focused Attention Memory Description: Grossly Intact Patient Reliability: Reliable Historian Fund of knowledge: Yes abstraction ability, Yes aware of current events Intelligence Estimate: Average Judgment: Limited Insight: Partial Hospital Course Hospital course: Mr. Solorio is a 31 year old male admitted for evaluation of hallucinations and history of bipolar disorder with psychosis patient also had a history of THC and amphetamine abuse. For details of the admission please see H&P On the unit patient was started on fluoxetine 20 mg and Seroquel 100 mg at bedtime in addition to when necessary medications. Patient reported improvements condition and prior to discharge she denied any auditory or visual hallucinations patient had an episode of dizziness and reported that he has a long history of dizzy episodes that was evaluated in the past patient was placed continue follow-up with his primary care or vocational nurse. Patient did not participate in groups or activities and spend most his time in his room he was cooperative and compliant with medication and tolerated medication was out any side effects his discharge plans were completed today. On discharge patient was medically stable denies suicidal hallucinations and aware of his discharge plans and he was educated about substance abuse and medication compliance his discharge in stable condition . - Time Spent with Patient Total time spent providing and/or coordinating discharge services: Less than 30 minutes Assessment and Plan - Patient/Caregiver Discharge Instructions Activity: resume usual activities as tolerated Diet: regular diet - [facility] 10:00 am (The above appointment is with Yessenia Wright for outpatient mental health and substance abuse counseling services. The above appointment(s) reflects first availability. You may contact the office regularly to check for cancellations that may allow you to be seen sooner. Also, groups run everyday in the clinic and you are welcome to come daily to those. Groups start at 9:00am.) Ronaldo Gaytan, MARY [Physician Bridge Crew Member] - 08/08/17 11:00 am (The above appointment is with ES Yen, at [facility] [place]. This appointment is to establish you with a primary care provider. Your needs for medication and/or Vivitrol will be assessed and treated as indicated as well. Please arrive 15 minutes early to complete paperwork. Please bring your insurance card, photo ID and list of current medications to your first appointment. The above appointment(s) reflects first availability. You may contact the office regularly to check for cancellations that may allow you to be seen sooner.) Functional capacity at discharge: independent ambulation Overall status at discharge: Stable Disposition: Home, Self-Care Quality - Multiple Antipsychotics Patient discharged on 2 or more antipsychotic medications: No Procedures - Procedures Procedures: Medication Management, Crisis Stabilization, Supportive Therapy, Group Therapy, Psychoeducational Therapy
== END 2017-07-26 18:40 | disposition home or self-care (01) | DRG 753 ==
LOC: EMEROO 16:12 → 1ANU 20:30 → SUATTDRO 20:30 → 1ANU 20:44
PROVIDERS: ADMIT Psychiatry & Neurology Psychiatry; ATTEND Psychiatry & Neurology Psychiatry